=== PATIENT | female | born 1995 | race Caucasian/White ===

== ENCOUNTER 2018-11-08 20:30 | Emergency (ER) | payer OTHER ==
[~2018-11-08] VITALS: Ht 165.1 cm; Wt 58.0 kg
[2018-11-08 20:55] VITALS: BP 114/81
[2018-11-08] MEDS ORDERED: PANT20TA2 PO (23:25)
[2018-11-08] MEDS ORDERED: mag hydrox/Alum hydrox/simeth 30ml oral suspension PO ONE (23:25)
[2018-11-08] MEDS ORDERED: LIDOcaine Viscous 15ml cup PO ONE (23:25)
[2018-11-08] MEDS ORDERED: pantoprazole 40mg Tablet.DR PO ONE (23:25)
[2018-11-08] MEDS ORDERED: MAG355OR18 PO (23:25)
[2018-11-08] MEDS ORDERED: famotidine 20mg tablet PO ONE (23:25)
== END 2018-11-08 23:43 | disposition home or self-care (01) ==
LOC: ER 20:31
DX: K29.70 Gastritis, unspecified, without bleeding (principal); T36.8X5A Adverse effect of other systemic antibiotics, initial encounter; Z79.899 Other long term (current) drug therapy; Y92.89 Other specified places as the place of occurrence of the external cause
CPT/HCPCS: 93005; 99284